=== PATIENT | male | born 2005 | race Caucasian/White ===

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

== ENCOUNTER 2025-01-12 15:23 | Outpatient (CLI) | payer OTHER, SELFPAY | END 2025-01-12 15:24 | disposition home or self-care (01) | LOC: NFLDREF 15:27 | PROVIDERS: PCP Internal Medicine; Visit Provider Internal Medicine | DX: R55 Syncope and collapse (principal) | CPT/HCPCS: 80053; 87086 ==